=== PATIENT | male | born 2000 | race Asian ===

== ENCOUNTER 2024-01-26 20:33 | Inpatient (IN) ==
[2024-01-26 21:25] LABS: Appearance Urine Clear (Clear); Bilirubin Urine Negative (Negative); Blood Urine Negative (Negative); Color Urine Yellow; Glucose Urine UA Negative (Negative); Ketones Urine Negative (Negative); Leukocyte Esterase Urine Negative (Negative); Nitrite Urine Negative (Negative); Protein Urine Negative (Negative); Specific Gravity Urine 1.011 (1.000-1.030); Urobilinogen Urine Negative (Negative)
[2024-01-26 21:36] LABS: Albumin Globulin Ratio 2.1 (0.9-2); Albumin Level 5.1 gm/dl (3.4-5.0); BUN Creatinine Ratio 15.4 (10-20); Basophils # (auto) 0.03 K/uL (0.00-0.20); Basophils % (auto) 0.5 %; Bilirubin,Total 0.7 mg/dl (0.2-1.0); Calcium 9.9 mg/dl (8.6-10.3); Creatinine Clr Calc Pharmacy 148.7 ml/min; Eosinophils # (auto) 0.07 K/uL (0.00-0.50); Eosinophils % (auto) 1.2 %; Est GFR (African American) 146.4 ml/min; Est GFR (Non-African American) 126.3 ml/min; Globulin 2.4 gm/dl (2.5-4.0); Hematocrit (blood only) 46.3 % (42.0-52.0); Hemoglobin 15.4 g/dl (14.0-18.0); Immature Granulocytes # (auto) 0.01 K/uL (0.01-0.20); Immature Granulocytes % (auto) 0.2 %; Lymphocytes # (auto) 2.44 K/uL (1.20-3.40); Lymphocytes % (auto) 41.7 %; Mean Corpuscular Hemoglobin 29.4 pg (25.0-34.0); Mean Corpuscular Hgb Conc 33.3 g/dL (32.0-36.0); Mean Corpuscular Volume 88.4 fL (80.0-100.0); Monocytes # (auto) 0.33 K/uL (0.11-0.59); Monocytes % (auto) 5.6 %; Neutrophils # (auto) 2.97 K/uL (1.40-6.50); Neutrophils % (auto) 50.8 %; Platelet Count 220 K/uL (130-400); Potassium 3.8 mmol/L (3.5-5.1); RDW Standard Deviation 38.8 fL (36.4-46.3); Red Blood Count 5.24 M/uL (4.70-6.10); Total Protein 7.5 gm/dl (6.0-8.3); White Blood Count 5.85 K/ul (4.8-10.8)
[2024-01-26 21:39] LABS: Acetaminophen < 3 ug/ml (10-30); Salicylate < 3.0 mg/dl (3.0-30)
[2024-01-26 21:51] LABS: Thyroid Stimulating Hormone 2.492 uIu/ml (0.300-4.500)
[2024-01-26 22:00] LABS: Amphetamines+Metham, Urine Neg (Neg); Barbiturates, Urine Neg (Neg); Benzodiazepine, Urine Neg (Neg); Cocaine, Urine Neg (Neg); Fentanyl, Urine Neg (Neg); MDMA (Ecstacy), Urine Neg (Neg); Marijuana, Urine Neg (Neg); Methadone, Urine Neg (Neg); Opiate, Urine Neg (Neg); Phencyclidine, Urine Neg (Neg)
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
[2024-01-27] MEDS ORDERED: BISMUTH SUBSALICYLATE LIQD 236 ML PO PRN (04:33)
[2024-01-27] MEDS ORDERED: ACETAMINOPHEN 325 MG TAB PO PRN (04:33)
[2024-01-27] MEDS ORDERED: hydrOXYzine HCl 25 MG TAB PO PRN ×2 (04:33)
[2024-01-27] MEDS ORDERED: SODIUM CHLORIDE 0.65% NA SOLN 45 ML (OCEAN) PRN (04:33)
[2024-01-27] MEDS ORDERED: ALUMINUM/MAGNESIUM SUSP 30 ML UDC PO PRN (04:33)
[2024-01-27] MEDS ORDERED: MAGNESIUM HYDROXIDE SUSP 30 ML UDC PO PRN (04:33)
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
[2024-01-27] MEDS: lamoTRIgine 25 MG TAB PO SCH (21:19)
[2024-01-27] MEDS: LITHIUM CARBONATE 450 MG TABCR PO SCH (21:19)
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
== END 2024-01-29 11:35 | disposition home or self-care (01) | DRG 885 ==
LOC: ED 20:33 → 3S 01-27 03:03